=== PATIENT | female | born 1960 | race Caucasian/White ===

== ENCOUNTER 2019-08-16 21:24 | Inpatient (IN) | payer SELFPAY ==
[~2019-08-16] VITALS: Ht 162.6 cm; Wt 71.0 kg
[2019-08-16 21:30] VITALS: BP_SYST 161
[2019-08-16] MEDS ORDERED: NACL 0.9% 1,000 ML IV ONE (22:09)
[2019-08-16] MEDS ORDERED: FUROSEMIDE 100 MG/10 ML VIAL IVP ONE (22:45)
[2019-08-16] MEDS ORDERED: FURO-149 PO (23:00)
[2019-08-16] MEDS ORDERED: PRO40 PO (23:00)
[2019-08-16 23:24] LABS: CALCIUM 8.1 mg/dL (8.4-11.0); CREATININE 0.92 mg/dL (0.55-1.30)
[2019-08-16 23:30] LABS: ALBUMIN 2.1 g/dL (3.4-4.8); TOTAL BILIRUBIN 2.4 mg/dL (0.0-1.0)
[2019-08-16 23:50] LABS: BASOPHILS % (AUTO) 0.5 % (0.0-2.0); EOSINOPHILS # (AUTO) 0.1 K/uL (0.0-0.4); EOSINOPHILS % (AUTO) 1.2 % (0.0-4.0); HEMATOCRIT 34.4 % (36-48); HEMOGLOBIN 11.6 g/dL (12.0-16.0); LYMPHOCYTES # (AUTO) 0.5 K/uL (1.0-5.5); LYMPHOCYTES % (AUTO) 8.7 % (20.5-51.5); MEAN CORPUSCULAR HEMOGLOBIN 30 pg (27-31); MEAN CORPUSCULAR HGB CONC 34 % (32-36); MEAN CORPUSCULAR VOLUME 89 fL (79.0-98.0); MONOCYTES # (AUTO) 0.8 K/uL (0.0-1.0); MONOCYTES % (AUTO) 13.4 % (1.7-9.3); NEUTROPHILS # (AUTO) 4.6 K/uL (1.8-7.7); NEUTROPHILS % (AUTO) 76.2 % (40.0-70.0); PLATELET COUNT (AUTO) 121 K/uL (130-430); RED BLOOD CELL COUNT(AUTO) 3.85 MIL/uL (4.2-6.2); RED CELL DISTRIBUTION WIDTH 16.1 % (9.0-15.0); WHITE BLOOD COUNT (AUTO) 6.1 K/uL (4.8-10.8)
[2019-08-17] VITALS (7 sets, daily range): BP systolic 127–161
[2019-08-17 00:29] LABS: BILIRUBIN,URINE NEGATIVE (NEGATIVE); BLOOD, URINE NEGATIVE (NEGATIVE); CLARITY/URINE CLEAR (CLEAR); COLOR,URINE YELLOW (YELLOW); GLUCOSE,URINE NEGATIVE (NEGATIVE); KETONES,URINE NEGATIVE (NEGATIVE); LEUKOCYTE ESTERASE ,URINE TRACE (NEGATIVE); NITRITE, URINE NEGATIVE (NEGATIVE); PROTEIN URINE NEGATIVE (NEGATIVE)
[2019-08-17] MEDS ORDERED: LevALBUTEROL HCL 1.25 MG/0.5 ML *CONC.* VIAL.NEB (XOPENEX CONC.) INH PRN ×2 (00:30→13:00)
[2019-08-17 00:32] LABS: UROBILINOGEN,URINE >=8 (0.2-1.0)
[2019-08-17 00:42] LABS: BACTERIA,URINE MODERATE /HPF (None Seen); RBC,URINE 0-3 /HPF (0-3)
[2019-08-17] MEDS ORDERED: POTASSIUM CHLORIDE 20 MEQ TAB.PRT.SR PO ONE ×2 (01:00→12:45)
[2019-08-17] MEDS ORDERED: DIPH-TET-PERTUS Vaccine 0.5 ML VIAL (ADACEL) I.M. ONE ×2 (01:00→01:13)
[2019-08-17] MEDS ORDERED: CLINDAMYCIN 600 mg/50mL D5W 50 ML IV ONE ×2 (01:00→01:12)
[2019-08-17] MEDS ORDERED: MORPHINE 4 MG/ML INJ. SYRINGE IVP ONE (01:00)
[2019-08-17] MEDS ORDERED: POTASSIUM CHLORIDE 10 MEQ TAB.PRT.SR PO ONE (01:00)
[2019-08-17] MEDS ORDERED: POTASSIUM CHLORIDE 10 MEQ TAB.PRT.SR ONE (01:12)
[2019-08-17] MEDS ORDERED: POTASSIUM CHLORIDE 20 MEQ TAB.PRT.SR ONE (01:12)
[2019-08-17 03:26] LABS: BASOPHILS % (AUTO) 0.4 % (0.0-2.0); EOSINOPHILS # (AUTO) 0.1 K/uL (0.0-0.4); HEMATOCRIT 32.9 % (36-48); LYMPHOCYTES # (AUTO) 0.6 K/uL (1.0-5.5); LYMPHOCYTES % (AUTO) 11.7 % (20.5-51.5); MEAN CORPUSCULAR HEMOGLOBIN 30 pg (27-31); MEAN CORPUSCULAR HGB CONC 33 % (32-36); MEAN CORPUSCULAR VOLUME 89 fL (79.0-98.0); MONOCYTES # (AUTO) 0.8 K/uL (0.0-1.0); MONOCYTES % (AUTO) 14.1 % (1.7-9.3); NEUTROPHILS % (AUTO) 71.8 % (40.0-70.0); PLATELET COUNT (AUTO) 106 K/uL (130-430); RED BLOOD CELL COUNT(AUTO) 3.69 MIL/uL (4.2-6.2); RED CELL DISTRIBUTION WIDTH 16.1 % (9.0-15.0); WHITE BLOOD COUNT (AUTO) 5.5 K/uL (4.8-10.8)
[2019-08-17 03:48] LABS: ALBUMIN 2.1 g/dL (3.4-4.8); CALCIUM 7.9 mg/dL (8.4-11.0); CREATININE 0.82 mg/dL (0.55-1.30); TOTAL BILIRUBIN 2.5 mg/dL (0.0-1.0)
[2019-08-17 03:51] LABS: POTASSIUM 2.9 mmol/L (3.5-5.1)
[2019-08-17] MEDS: SPIRONOLACTONE 25 MG TABLET (ALDACTONE) PO SCH (09:03)
[2019-08-17] MEDS: FUROSEMIDE 20 MG/2 ML VIAL IVP SCH ×2 (09:04→21:16)
[2019-08-17] MEDS ORDERED: D5W 1,000 ML IV PRN (13:00)
[2019-08-17] MEDS ORDERED: GLUCOSE 15 GM GEL (in 37.5 GM TUBE) PO PRN (13:00)
[2019-08-17] MEDS ORDERED: DEXTROSE 50%-WATER 50 ML DISP.SYRIN IVP PRN (13:00)
[2019-08-17] MEDS ORDERED: FAMOTIDINE 20 MG TABLET PO ONE (13:00)
[2019-08-17] MEDS: INSULIN REGULAR, HUMAN 100 UNITS/ML, 10 ML VIAL (humuLIN R) SUBCUT PRN (13:03)
[2019-08-17] MEDS: MORPHINE SULFATE 10 MG/ML VIAL IVP PRN (14:18)
[2019-08-17] MEDS ORDERED: TEMAZEPAM 15 MG CAPSULE PO PRN (14:45)
[2019-08-17] MEDS: LevALBUTEROL HCL 1.25 MG/0.5 ML *CONC.* VIAL.NEB (XOPENEX CONC.) INH SCH ×2 (15:00→23:37)
[2019-08-18 06:03] LABS: BASOPHILS % (AUTO) 0.6 % (0.0-2.0); EOSINOPHILS # (AUTO) 0.1 K/uL (0.0-0.4); EOSINOPHILS % (AUTO) 2.2 % (0.0-4.0); HEMATOCRIT 31.4 % (36-48); HEMOGLOBIN 10.6 g/dL (12.0-16.0); LYMPHOCYTES # (AUTO) 0.5 K/uL (1.0-5.5); MEAN CORPUSCULAR HEMOGLOBIN 30 pg (27-31); MEAN CORPUSCULAR HGB CONC 34 % (32-36); MEAN CORPUSCULAR VOLUME 90 fL (79.0-98.0); MONOCYTES # (AUTO) 0.6 K/uL (0.0-1.0); MONOCYTES % (AUTO) 10.5 % (1.7-9.3); NEUTROPHILS # (AUTO) 4.6 K/uL (1.8-7.7); NEUTROPHILS % (AUTO) 78.7 % (40.0-70.0); PLATELET COUNT (AUTO) 105 K/uL (130-430); RED CELL DISTRIBUTION WIDTH 16.2 % (9.0-15.0); WHITE BLOOD COUNT (AUTO) 5.8 K/uL (4.8-10.8)
[2019-08-18 06:19] LABS: CALCIUM 8.3 mg/dL (8.4-11.0); CREATININE 0.79 mg/dL (0.55-1.30); POTASSIUM 3.3 mmol/L (3.5-5.1)
[2019-08-18 08:00] VITALS: BP_SYST 130
[2019-08-18] MEDS: FAMOTIDINE 20 MG TABLET PO SCH (08:15)
[2019-08-18] MEDS: SPIRONOLACTONE 25 MG TABLET (ALDACTONE) PO SCH (08:15)
[2019-08-18] MEDS: FUROSEMIDE 20 MG/2 ML VIAL IVP SCH ×2 (08:16→20:25)
[2019-08-18] MEDS: LevALBUTEROL HCL 1.25 MG/0.5 ML *CONC.* VIAL.NEB (XOPENEX CONC.) INH SCH ×3 (08:40→23:14)
[2019-08-18] MEDS ORDERED: FUROSEMIDE 20 MG/2 ML VIAL IVP SCH (09:00)
[2019-08-18] MEDS ORDERED: SPIRONOLACTONE 25 MG TABLET (ALDACTONE) PO SCH (09:00)
[2019-08-18] MEDS: MORPHINE SULFATE 10 MG/ML VIAL IVP PRN (10:33)
[2019-08-18] MEDS: INSULIN REGULAR, HUMAN 100 UNITS/ML, 10 ML VIAL (humuLIN R) SUBCUT PRN ×2 (11:34→20:34)
[2019-08-18 12:24] VITALS: BP_SYST 138
[2019-08-18 14:25] VITALS: BP_SYST 103
[2019-08-18 16:25] VITALS: BP_SYST 119
[2019-08-18 22:06] VITALS: BP_SYST 133
[2019-08-18] MEDS ORDERED: POTASSIUM CHLORIDE 20 MEQ TAB.PRT.SR PO ONE (22:45)
[2019-08-19 00:19] VITALS: BP_SYST 131
[2019-08-19 06:29] LABS: CALCIUM 8.1 mg/dL (8.4-11.0); CREATININE 0.76 mg/dL (0.55-1.30); POTASSIUM 3.6 mmol/L (3.5-5.1)
[2019-08-19 06:45] LABS: BASOPHILS % (AUTO) 0.8 % (0.0-2.0); EOSINOPHILS # (AUTO) 0.1 K/uL (0.0-0.4); EOSINOPHILS % (AUTO) 2.7 % (0.0-4.0); HEMOGLOBIN 10.9 g/dL (12.0-16.0); LYMPHOCYTES # (AUTO) 0.5 K/uL (1.0-5.5); LYMPHOCYTES % (AUTO) 9.1 % (20.5-51.5); MEAN CORPUSCULAR HEMOGLOBIN 31 pg (27-31); MEAN CORPUSCULAR HGB CONC 34 % (32-36); MEAN CORPUSCULAR VOLUME 89 fL (79.0-98.0); MONOCYTES # (AUTO) 0.6 K/uL (0.0-1.0); MONOCYTES % (AUTO) 12.1 % (1.7-9.3); NEUTROPHILS % (AUTO) 75.3 % (40.0-70.0); PLATELET COUNT (AUTO) 97 K/uL (130-430); RED BLOOD CELL COUNT(AUTO) 3.58 MIL/uL (4.2-6.2); RED CELL DISTRIBUTION WIDTH 16.6 % (9.0-15.0); WHITE BLOOD COUNT (AUTO) 5.3 K/uL (4.8-10.8)
[2019-08-19] MEDS: LevALBUTEROL HCL 1.25 MG/0.5 ML *CONC.* VIAL.NEB (XOPENEX CONC.) INH SCH ×3 (07:05→23:17)
[2019-08-19 07:58] VITALS: BP_SYST 116
[2019-08-19] MEDS: FAMOTIDINE 20 MG TABLET PO SCH (08:27)
[2019-08-19] MEDS: SPIRONOLACTONE 25 MG TABLET (ALDACTONE) PO SCH (08:27)
[2019-08-19] MEDS: FUROSEMIDE 20 MG/2 ML VIAL IVP SCH ×2 (08:27→20:30)
[2019-08-19] MEDS: INSULIN REGULAR, HUMAN 100 UNITS/ML, 10 ML VIAL (humuLIN R) SUBCUT PRN (11:16)
[2019-08-19 12:28] VITALS: BP_SYST 108
[2019-08-19] MEDS: MORPHINE SULFATE 10 MG/ML VIAL IVP PRN (15:18)
[2019-08-19 16:15] VITALS: BP_SYST 114
[2019-08-19 20:00] VITALS: BP_SYST 137
[2019-08-19 23:58] VITALS: BP_SYST 138
[2019-08-20] MEDS: LevALBUTEROL HCL 1.25 MG/0.5 ML *CONC.* VIAL.NEB (XOPENEX CONC.) INH SCH ×2 (07:10→14:59)
[2019-08-20 07:20] VITALS: BP_SYST 138
[2019-08-20 07:35] VITALS: BP_SYST 136
[2019-08-20] MEDS: SPIRONOLACTONE 25 MG TABLET (ALDACTONE) PO SCH (11:40)
[2019-08-20] MEDS: FAMOTIDINE 20 MG TABLET PO SCH (11:40)
[2019-08-20] MEDS: FUROSEMIDE 20 MG/2 ML VIAL IVP SCH (11:42)
[2019-08-20 12:22] VITALS: BP_SYST 146
[2019-08-20 16:45] VITALS: BP_SYST 123
[2019-08-20 19:10] VITALS: BP_SYST 93
[2019-08-20] MEDS ORDERED: FAMO20TA8 PO (19:13)
[2019-08-20] MEDS ORDERED: SPIR50TA PO (19:14)
[2019-08-20 20:35] VITALS: BP_SYST 113
== END 2019-08-20 20:40 | disposition home or self-care (01) | DRG 441 ==
LOC: SED 21:24 → SMU 08-17 00:29
PROVIDERS: ADMIT Family Medicine; ATTEND Family Medicine
PROC: 0W9G3ZZ Drainage of Peritoneal Cavity, Percutaneous Approach (ICD-10-PCS; principal; 2019-08-19)
PROC: 0W9G3ZZ Drainage of Peritoneal Cavity, Percutaneous Approach (ICD-10-PCS; 2019-08-20)
DX: K76.9 Liver disease, unspecified (principal); E43 Unspecified severe protein-calorie malnutrition; R18.8 Other ascites; L03.115 Cellulitis of right lower limb; B18.2 Chronic viral hepatitis C; D64.9 Anemia, unspecified; E11.9 Type 2 diabetes mellitus without complications; J44.9 Chronic obstructive pulmonary disease, unspecified; E87.6 Hypokalemia; Z79.899 Other long term (current) drug therapy
CPT/HCPCS: 36415; 49083; 71045; 73590-TC; 80048; 80053; 81000-TC; 82140-TC; 82962; 83605; 83690-TC; 83735-TC; 83880; 84132-TC; 84484; 85025; 87040-TC; 87086; 90715; 93005; 94640; 94760; 96365; 96375; 99285; C1729; J1815; J1940; J2270; J3490; J7612